=== PATIENT | male | born 1990 | race American Indian/Alaskan Native ===

== ENCOUNTER 2018-02-12 22:49 | Emergency (ER) | payer OTHER ==
[2018-02-13] MEDS ORDERED: MOTRIN PO ONE (02:07)
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
[2018-02-13 06:21] VITALS: BP 124/82
== END 2018-02-13 03:10 | disposition home or self-care (01) ==
LOC: ED 22:49
DX: S13.4XXA Sprain of ligaments of cervical spine, initial encounter (principal); S39.012A Strain of muscle, fascia and tendon of lower back, initial encounter; F17.200 Nicotine dependence, unspecified, uncomplicated; F12.10 Cannabis abuse, uncomplicated; V49.49XA Driver injured in collision with other motor vehicles in traffic accident, initial encounter; Y93.89 Activity, other specified; Y92.89 Other specified places as the place of occurrence of the external cause; Y99.8 Other external cause status
CPT/HCPCS: 99282